=== PATIENT | female | born 1960 | race Hispanic/Latino ===

== ENCOUNTER 2018-04-28 15:40 | Observation (INO) | payer MEDICARE ==
[~2018-04-28] VITALS: Ht 152.4 cm; Wt 84.4 kg
[2018-04-28 16:11] LABS: BASOPHILS % (AUTO) 0.8 % (0.0-5.0); EOSINOPHILS % (AUTO) 4.5 % (0.0-8.0); HEMATOCRIT 36.9 % (36-48); LYMPHOCYTES % (AUTO) 34.2 % (21.0-51.0); MEAN CORPUSCULAR HEMOGLOBIN 32.8 pg (27.0-33.0); MEAN CORPUSCULAR HGB CONC 34.5 g/dL (32.0-36.0); MONOCYTES % (AUTO) 8.2 % (3.0-13.0); NEUTROPHILS % (AUTO) 52.3 % (40.0-77.0); PLATELET COUNT (AUTO) 140 K/uL (130-400); RED BLOOD CELL COUNT(AUTO) 3.88 MIL/uL (4.00-5.50); RED CELL DISTRIBUTION WIDTH 14.7 % (11.0-15.5); WHITE BLOOD COUNT (AUTO) 7.3 K/uL (4.8-10.8)
[2018-04-28 16:22] LABS: CREATININE 0.6 mg/dL (0.5-1.5); POTASSIUM 3.4 mmol/L (3.5-5.1)
[2018-04-28 16:26] LABS: ALBUMIN 3.8 g/dL (3.5-5.0); BILIRUBIN,TOTAL 0.5 mg/dL (0.2-1.0); TOTAL PROTEIN, SERUM 6.4 g/dL (6.0-8.3)
[2018-04-28 16:34] LABS: INR 0.95 (0.85-1.15); PARTIAL THROMBOPLASTIN TIME 28.3 SEC (26.3-35.5)
[2018-04-28] MEDS ORDERED: ONDANSETRON HCL 4 MG/2 ML VIAL IV PRN (21:30)
[2018-04-28] MEDS ORDERED: MORPHINE SULFATE 4 MG/1ML SYG IV PRN (21:30)
[2018-04-28] MEDS ORDERED: ACETAMINOPHEN 325 MG TAB PO PRN ×2 (21:30)
[2018-04-28] MEDS: NITROGLYCERIN 1GM/1 INCH PACKET TD SCH (21:30)
[2018-04-28] MEDS ORDERED: NITROGLYCERIN 1GM/1 INCH PACKET TD ONE (22:35)
[2018-04-29 00:59] VITALS: BP 130/63
[2018-04-29] MEDS ORDERED: RANO10003 PO (01:18)
[2018-04-29] MEDS ORDERED: MIRT30TA6 PO (01:18)
[2018-04-29] MEDS ORDERED: ATOR40TA71 PO (01:18)
[2018-04-29] MEDS ORDERED: ASPI-555 PO (01:18)
[2018-04-29] MEDS ORDERED: LEVO88TA7 PO (01:18)
[2018-04-29] MEDS ORDERED: NITR0.4T50 SL (01:18)
[2018-04-29] MEDS ORDERED: OLAN20TA17 PO (01:18)
[2018-04-29] MEDS ORDERED: LORA10CA9 PO (01:18)
[2018-04-29] MEDS ORDERED: NAPR500T6 PO (01:18)
[2018-04-29] MEDS ORDERED: HYDR-4068 PO (01:18)
[2018-04-29] MEDS ORDERED: MELO-106 PO (01:18)
[2018-04-29] MEDS ORDERED: METO25TA6 PO (01:18)
[2018-04-29] MEDS ORDERED: BACL5TAB PO (01:18)
[2018-04-29 03:26] VITALS: BP 113/50
[2018-04-29] MEDS: NITROGLYCERIN 1GM/1 INCH PACKET TD SCH (04:46)
[2018-04-29 07:50] VITALS: BP 112/56
[2018-04-29] MEDS ORDERED: METOPROLOL TARTRATE 25 MG TAB PO SCH (09:00)
[2018-04-29] MEDS ORDERED: ENOXAPARIN SODIUM 40 MG/0.4 ML SYRINGE SQ SCH (09:00)
[2018-04-29] MEDS ORDERED: ASPIRIN 325 MG TABLET PO SCH (09:00)
[2018-04-29] MEDS ORDERED: FAMOTIDINE/PF 20 MG/2 ML VIAL IV SCH (09:00)
--- NOTE | 2018-04-29 09:58 | NUR ---
MD UPDATE updated on pt's status as well as current circumstances regarding pt's plan of care - Letha Fang RN available to update regarding tentative plans for pt's surgical intervention by . Per , consult with cardiology will be cancelled but cardiology will be available as needed. Pt and family members will be advised.
[2018-04-29 12:00] VITALS: BP 148/77
== END 2018-04-29 13:33 | disposition left against medical advice (07) ==
LOC: EDH 15:40 → EDHIP 20:05 → 2DH 04-29 00:52
PROVIDERS: ADMIT Internal Medicine; ATTEND Internal Medicine
DX: I25.119 Atherosclerotic heart disease of native coronary artery with unspecified angina pectoris (principal); E03.9 Hypothyroidism, unspecified; E11.9 Type 2 diabetes mellitus without complications; I11.9 Hypertensive heart disease without heart failure; E78.5 Hyperlipidemia, unspecified; F31.9 Bipolar disorder, unspecified; F17.210 Nicotine dependence, cigarettes, uncomplicated; Z95.1 Presence of aortocoronary bypass graft; Z79.4 Long term (current) use of insulin; Z79.01 Long term (current) use of anticoagulants
CPT/HCPCS: 36415; 71045; 80053; 82550; 82948; 84484 ×3; 85025; 85610; 85730; 93005; 96372; 96374; 99284; G0378 ×17; J3490; J1650

== ENCOUNTER 2022-03-24 05:53 | Day surgery (SDC) | payer MEDICARE ==
[2022-03-20 10:13] LABS: BASOPHILS % (AUTO) 0.9 % (0.0-5.0); EOSINOPHILS % (AUTO) 6.3 % (0.0-8.0); HEMATOCRIT 41.1 % (36-48); LYMPHOCYTES % (AUTO) 23.1 % (21.0-51.0); MEAN CORPUSCULAR HEMOGLOBIN 33.3 pg (27.0-33.0); MEAN CORPUSCULAR HGB CONC 33.1 g/dL (32.0-36.0); MEAN CORPUSCULAR VOLUME 100.5 fL (79-99); MONOCYTES % (AUTO) 7.7 % (3.0-13.0); NEUTROPHILS % (AUTO) 61.7 % (40.0-77.0); PLATELET COUNT (AUTO) 185 K/uL (130-400); RED BLOOD CELL COUNT(AUTO) 4.09 MIL/uL (4.00-5.50); WHITE BLOOD COUNT (AUTO) 7.8 K/uL (4.8-10.8)
[2022-03-20 10:16] LABS: CREATININE 0.7 mg/dL (0.5-1.5); POTASSIUM 4.6 mmol/L (3.5-5.1)
[2022-03-20 10:17] LABS: APPEARANCE,URINE CLEAR (CLEAR); BILIRUBIN,URINE NEGATIVE (NEGATIVE); COLOR,URINE COLORLESS (YELLOW); GLUCOSE, URINE (UA) >=1000 mg/dL (NEGATIVE); KETONES,URINE NEGATIVE (NEGATIVE); LEUKOCYTE ESTERASE ,URINE NEGATIVE Leu/uL (NEGATIVE); NITRATE,URINE NEGATIVE (NEGATIVE); OCCULT BLOOD,URINE NEGATIVE (NEGATIVE); PROTEIN,URINE NEGATIVE (NEGATIVE); UROBILINOGEN,URINE 0.2 mg/dL (0.2-1.0)
[2022-03-20 10:22] LABS: INR 1.01 (0.85-1.15)
[2022-03-20 10:27] LABS: RBC,URINE 0-1 /HPF (0-1); SQUAMOUS EPITHELIAL CELL,UR FEW /HPF (0-2)
[2022-03-20 10:38] LABS: B-TYPE NATRIURETIC PEPTIDE 47 pg/mL (0-100)
[2022-03-21 12:26] VITALS: BP 120/68
[2022-03-24] VITALS (12 sets, daily range): BP systolic 105–151; BP diastolic 49–95
[~2022-03-24] VITALS: Ht 154.9 cm; Wt 77.1 kg
[~2022-03-24 05:53] MED LIST: 0.9% NACL 500ML IV.SOLN 500 ML IV SCH; ASPI-556 PO; ATOR40TA69 PO; EMPA1TAB19 PO; INSU100C6 SQ; INSU100V37 SQ; ISOS30TA92 PO; LEVO88TA7 PO; METO25TA6 PO; RANO500T3 PO
[2022-03-24] MEDS ORDERED: 0.9%NACL 1000ML 1,000 ML IV ONE (07:14)
[2022-03-24] MEDS ORDERED: IOHEXOL 350 MG/ML 100ML INFUS..BTL IV ONE ×2 (07:16→08:13)
[2022-03-24] MEDS ORDERED: IOHEXOL-350 50ML VIAL IV ONE (07:16)
[2022-03-24] MEDS ORDERED: NITROGLYCERIN 50MG VIAL ONE (07:16)
[2022-03-24] MEDS ORDERED: MIDAZOLAM HCL 1 MG/ML 2ML VIAL ONE ×3 (07:16→08:09)
[2022-03-24] MEDS ORDERED: HEPARIN 10,000 UNIT/10ML (1,000 UNIT/ML) VIAL ONE (07:16)
[2022-03-24] MEDS ORDERED: SODIUM BICARB 50MEQ 50ML VIAL 50 ML ONE (07:16)
[2022-03-24] MEDS ORDERED: FENTANYL CITRATE PF 50 MCG/1 ML 2ML VIAL ONE (07:16)
[2022-03-24] MEDS ORDERED: LIDOCAINE HCL 400MG/20ML VIAL ONE (07:17)
[2022-03-24] MEDS ORDERED: MEPERIDINE-PF 25 MG/ML SYG ONE ×3 (07:28→08:09)
[2022-03-24] MEDS ORDERED: CLOPIDOGREL 300MG TAB ONE ×2 (08:40→08:41)
[2022-03-24] MEDS ORDERED: 0.9%NACL 1000ML 1,000 ML IV SCH (09:00)
[2022-03-24] MEDS ORDERED: DEXTROSE 50%-WATER 50 ML DISP.SYRIN IV PRN (09:00)
[2022-03-24] MEDS ORDERED: INSULIN HUMULIN R 100 UNIT/ML 3ML SQ SCH (11:30)
== END 2022-03-24 15:45 | disposition home or self-care (01) ==
LOC: DAH 05:53
PROVIDERS: ATTEND Internal Medicine Cardiovascular Disease
DX: I25.110 Atherosclerotic heart disease of native coronary artery with unstable angina pectoris (principal); I25.720 Atherosclerosis of autologous artery coronary artery bypass graft(s) with unstable angina pectoris; I25.82 Chronic total occlusion of coronary artery; E11.51 Type 2 diabetes mellitus with diabetic peripheral angiopathy without gangrene; I10 Essential (primary) hypertension; I25.2 Old myocardial infarction; E66.9 Obesity, unspecified; E78.5 Hyperlipidemia, unspecified; F17.200 Nicotine dependence, unspecified, uncomplicated; Z95.5 Presence of coronary angioplasty implant and graft; Z79.890 Hormone replacement therapy; Z88.0 Allergy status to penicillin; Z68.32 Body mass index [BMI] 32.0-32.9, adult; Z79.01 Long term (current) use of anticoagulants; Z79.82 Long term (current) use of aspirin; Z79.899 Other long term (current) drug therapy
CPT/HCPCS: 80048; 83880; 85025; 85610; 85730; 81001; 36415; 71045; 93005; 93799; 85347; 82948 ×6; 93459; C9600; C1761; C1769 ×3; C1887 ×3; C1894 ×2; C1760; C1874; J3490 ×3; J7030; J7070; J1644 ×3; J2250 ×3; J2175 ×3; Q9967; A4215; A4222; A4221; A4663; A4216; A4606; Q9965 ×2; A4223 ×3; 96360; 96361; 99156; 99157; J3010